=== PATIENT | female | born 1935 | race Caucasian/White ===

== ENCOUNTER 2018-06-04 20:13 | Emergency (ER) | payer MEDICARE ==
[~2018-06-04] VITALS: Ht 167.6 cm; Wt 72.6 kg
[2018-06-04] MEDS ORDERED: CIPRO500 MG PO (22:43)
[2018-06-04] MEDS ORDERED: ZOFRAN4 MG PO (22:43)
[2018-06-04] MEDS ORDERED: FLAGYL500 MG PO (22:43)
[2018-06-04] MEDS ORDERED: NORCO 5-325 TA1 EACH PO (22:43)
== END 2018-06-04 23:05 | disposition home or self-care (01) ==
LOC: ED 20:13
DX: K57.32 Diverticulitis of large intestine without perforation or abscess without bleeding (principal); Z90.49 Acquired absence of other specified parts of digestive tract; Z88.0 Allergy status to penicillin
CPT/HCPCS: 74177; 80053; 81001; 83690; 85025; 99284-25; Q9967

== ENCOUNTER 2018-06-25 13:38 | Emergency (ER) | payer MEDICARE, OTHER ==
[~2018-06-25] VITALS: Ht 167.6 cm; Wt 73.5 kg
[~2018-06-25 13:38] MED LIST: CIPRO500 MG PO; FLAGYL500 MG PO; NORCO 5-325 TA1 EACH PO; ZOFRAN4 MG PO
--- OUTSIDE RECORDS SUMMARY | 2018-06-25 13:42 | XMS ---
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 Ilda has no Care Guidelines for this patient. [facility]12 MO.) [facility] NOTE: Visits indicate total known visits. ED/C VISIT TRACKING (12 MO.) 06/25/2018 13:39 [facility] [place] TYPE: Emergency COMPLAINT: - RT RIB PAIN,INJURY 06/04/2018 20:[address] [facility] [place] TYPE: Emergency COMPLAINT: - ABD PAIN DIAGNOSES: - Unspecified abdominal pain - Allergy status to penicillin - Diverticulitis of large intestine without perforation or abscess without bleeding - Acquired absence of other specified parts of digestive tract INPATIENT VISIT TRACKING (12 MO.) No inpatient visits to display in this time frame [email or web address]
[2018-06-25] MEDS ORDERED: NORCO 5-325 TA1 EACH PO (14:43)
== END 2018-06-25 14:56 | disposition home or self-care (01) ==
LOC: ED 13:38
DX: S22.32XA Fracture of one rib, left side, initial encounter for closed fracture (principal); Z90.710 Acquired absence of both cervix and uterus; Z88.0 Allergy status to penicillin; W10.9XXA Fall (on) (from) unspecified stairs and steps, initial encounter
CPT/HCPCS: 71101; 99283-25

== ENCOUNTER 2021-03-29 13:52 | Emergency (ER) | payer MEDICARE, OTHER ==
[~2021-03-29] VITALS: Ht 167.6 cm; Wt 65.8 kg
[2021-03-29] MEDS ORDERED: CEFDINIR300 MG PO (14:42)
[2021-03-29] MEDS ORDERED: ELIQUIS5 MG PO (18:47)
== END 2021-03-29 23:52 | disposition home or self-care (01) ==
LOC: ED 13:52
DX: I82.622 Acute embolism and thrombosis of deep veins of left upper extremity (principal); Z87.891 Personal history of nicotine dependence; Z88.0 Allergy status to penicillin; Z88.2 Allergy status to sulfonamides; Z79.899 Other long term (current) drug therapy; Z20.822 Contact with and (suspected) exposure to COVID-19
CPT/HCPCS: 70491; 71260; 80048; 81001; 85025; 85610; 85730; 93971; 99284-25; C9803; J1650; Q9967; U0003